=== PATIENT | male | born 1985 | race Caucasian/White ===

== ENCOUNTER → 2016-03-03 | Day surgery (SDC) | payer OTHER ==
[2016-02-25 08:45] VITALS: Ht 185.4 cm; Wt 100.9 kg
[~2016-03-03] VITALS: Ht 185.4 cm; Wt 100.9 kg
[~2016-03-03] MED LIST: ATV/2 SL; KPP/1000 PO; LIDOCAINE HCL 2% 2 ML VIAL (20MG/ML) ONE; MULT-506 PO; PROPOFOL IV EMULSION 10 MG/ML 20 ML VIAL IV ONE; SODIUM CHLORIDE 0.9% 500ML 500 ML IV ONE
--- NOTE | 2016-03-03 13:03 | Endo History and Physical ---
History & Physical Date of Service: Mar 03, 2016. Chief Complaint: ABDOMINAL PAIN, BLOOD IN STOOL Referring Physician: DR. LYLE History of Present Illness 30 yo CM who presents for Colonoscopy secondary to abdominal pain and blood in stool. Past Surgical History Hx Cardiac Surgery: No Hx Internal Defibrillator: No Hx Pacemaker: No Hx Abdominal Surgery: No Hx of Implantable Prosthesis: No Hx Post-Op Nausea and Vomiting: No Hx Cancer Surgery: No Hx Thoracic Surgery: No Hx Orthopedic: No Hx Urinary Tract Surgery: No Family History Colon CA Social History Smoking Status: Former Smoker Hx Substance Use: Yes (OCCASIONAL MARIJUANA) Hx Alcohol Use: Yes (OCCASIONAL) Allergies Coded Allergies: No Known Allergies (Verified , 03/03/16) Current Medications Reported Home Medications Medications Dose Route/Sig Max Daily Dose Days Date Category Ativan (Lorazepam) 2 Mg Tab 1 Tab SL UD PRN 02/25/16 Reported Multivitamin (Multivitamins) Tab 1 Tab PO QAM 02/25/16 Reported Keppra (Levetiracetam) 1,000 Mg Tab 1,000 Mg PO BID 02/25/16 Reported Vital Signs Weight (Kilograms): 100.91 Height (Feet): 6 Height (Inches): 1 Date Time Temp Pulse Resp B/P Pulse Ox O2 Delivery O2 Flow Rate FiO2 03/03/16 12:48 36.8 50 20 128/66 97 Room Air Physical Exam General Appearance: WD/WN, no apparent distress Respiratory/Chest: Auscultation: breath sounds normal Cardiovascular: Heart Auscultation: RRR Abdomen: Bowel Sounds: normal Inspection & Palpation: soft, non-distended, no tenderness, guarding & rebound Assessment and Plan Assessment: 30 yo CM who presents for Colonoscopy secondary to abdominal pain and blood in stool. Plan: Proceed with colonoscopy.
--- NOTE | 2016-03-03 13:30 | GI REPORT ---
Procedure Date: 03/03/2016 1:08 PM Procedure: Colonoscopy Indications: Generalized abdominal pain, Chronic diarrhea, Rectal bleeding Medicines: Monitored Anesthesia Care Complications: No immediate complications. Estimated Blood Loss: Estimated blood loss: none. Procedure: Pre-Anesthesia Assessment: - Prior to the procedure, a History and Physical was performed, and patient medications and allergies were reviewed. The patient's tolerance of previous anesthesia was also reviewed. The risks and benefits of the procedure and the sedation options and risks were discussed with the patient. All questions were answered, and informed consent was obtained. Prior Anticoagulants: The patient has taken no previous anticoagulant or antiplatelet agents. ASA Grade Assessment: II - A patient with mild systemic disease. After reviewing the risks and benefits, the patient was deemed in satisfactory condition to undergo the procedure. After I obtained informed consent, the scope was passed under direct vision. Throughout the procedure, the patient's blood pressure, pulse, and oxygen saturations were monitored continuously. The scope was introduced through the anus and advanced to the terminal ileum. The colonoscopy was performed without difficulty. The patient tolerated the procedure well. The quality of the bowel preparation was good. The terminal ileum, ileocecal valve, appendiceal orifice, and rectum were photographed. Findings: The colon (entire examined portion) appeared normal. Several random biopsies were obtained with cold forceps for histology in the entire colon. Fluid aspiration for cytology was performed. Impression: - The entire examined colon is normal. Fluid aspiration performed. - Several random biopsies were obtained in the entire colon. Recommendation: - Resume previous diet. - Continue present medications. - Repeat colonoscopy for surveillance based on pathology results. - Return to primary care physician as previously scheduled. Roc Lang DO 03/03/2016 1:29:49 PM This report has been signed electronically. Note Initiated On: 03/03/2016 1:08 PM
--- NOTE | 2016-03-03 13:33 | Discharge Instructions ---
Endoscopy Patient Instructions Date / Procedure(s) Performed Mar 03, 2016. Colonoscopy Allergy Information Coded Allergies: No Known Allergies (Verified , 03/03/16) Discharge Date / Findings Mar 03, 2016. Random colon biopsies Stool studies Medication Instructions OK to resume all medications today as prescribed Reported Home Medications Medications Dose Route/Sig Max Daily Dose Days Date Category Ativan (Lorazepam) 2 Mg Tab 1 Tab SL UD PRN 02/25/16 Reported Multivitamin (Multivitamins) Tab 1 Tab PO QAM 02/25/16 Reported Keppra (Levetiracetam) 1,000 Mg Tab 1,000 Mg PO BID 02/25/16 Reported Provider Instructions Activity Restrictions - No exercising or heavy lifting for 24 hours. - Do not drink alcohol the day of the procedure. - Do not drive a car or operate machinery until the day after the procedure. - Do not make any important decisions or sign important papers in 24 hours after the procedure. Following Day: - Return to full activity which may include returning to work/school. Diet Start your diet with liquids and light foods (jello, soup, juice, toast). Then eat your usual diet if not nauseated. Treatment For Common After Affects For mild abdominal pain, bloating, or excessive gas: - Rest - Eat lightly - Lie on right side Follow-Up Information Follow-up with DR. LYLE as scheduled Anesthesia Information What You Should Know You have had a procedure that required some medicine to reduce anxiety and discomfort. This treatment is called moderate sedation. After receiving the treatment, you may be sleepy, but you will be able to breathe on your own. The effects of the treatment may last for several hours. Follow these instructions along with Activity/Diet recommendations noted above: * Do NOT do anything where dizziness or clumsiness would be dangerous. * Rest quietly at home today, then you can be up and about tomorrow. * Have a responsible person stay with you the rest of today. * You may have had an I.V. today. If so, you may take the dressing off later today. Recommendations Call your doctor if: * Trouble breathing * Continuous vomiting for more than 24 hours * Temperature above 101 degrees * Severe abdominal pain or bloating * Pain not relieved by pain medicine ordered * There is increased drainage or redness from any incision * A large amount of rectal bleeding greater than 2-3 tablespoons. (If you had a polyp/s removed or have hemorrhoids, a small amount of blood - from the rectum is to be expected.) * You have any unanswered questions or concerns. IN THE EVENT OF A SERIOUS EMERGENCY, GO TO THE NEAREST EMERGENCY ROOM Your discharge instructions were prepared by provider Roc Lang. Patient Instructions Signature Page Baltazar Cronin Patient (or Guardian) Signature/Date: I have read and understand the instructions given to me by my caregivers. Caregiver/RN/Doctor Signature/Date: The above-named patient and/or guardian has received patient instructions on this date. + Original Patient Signature Page (only) stays with chart. Please make copy for patient.
--- NOTE | 2016-03-03 13:36 | Anesthesiology Progress Note ---
Anesthesia Post Op Note Date & Time Mar 03, 2016 at 13:35 Vital Signs Pain Intensity: 0 Vital Signs Past 12 Hours Date Time Temp Pulse Resp B/P Pulse Ox O2 Delivery O2 Flow Rate FiO2 03/03/16 13:26 45 16 101/54 96 Room Air 03/03/16 12:48 36.8 50 20 128/66 97 Room Air Notes Mental Status: alert / awake / arousable, participated in evaluation Pt Amnestic to Procedure: Yes Nausea / Vomiting: adequately controlled Pain: adequately controlled Airway Patency, RR, SpO2: stable & adequate BP & HR: stable & adequate Hydration State: stable & adequate Anesthetic Complications: no major complications apparent
[2016-03-03 13:55] VITALS: BP 118/72; PULSE 46; O2SAT 100
== END | disposition home or self-care (01) ==
LOC: C.GI 12:30
PROVIDERS: ATTEND Internal Medicine
DX: K52.9 Noninfective gastroenteritis and colitis, unspecified (principal); K92.1 Melena; R10.84 Generalized abdominal pain; Z80.0 Family history of malignant neoplasm of digestive organs; Z87.891 Personal history of nicotine dependence

== ENCOUNTER → 2016-04-25 | Outpatient (CLI) | payer OTHER ==
[~2016-04-25] MED LIST changes: -LIDOCAINE HCL 2% 2 ML VIAL (20MG/ML) ONE; -PROPOFOL IV EMULSION 10 MG/ML 20 ML VIAL IV ONE; -SODIUM CHLORIDE 0.9% 500ML 500 ML IV ONE
[2016-04-25 13:13] LABS: BASO % 0.6 %; BASO ABS # 0.04 K/uL (0-0.2); COMPLETE YES; EOS % 3.9 %; IG% 0.6 %; LYMPH % 28.1 %; LYMPH ABS # 1.97 K/uL (1.2-3.4); MEAN CELL VOLUME 88.4 fL (80-100); MEAN CORPUSCULAR HEMOGLOBIN 30.3 pg (25-34); MEAN CORPUSCULAR HGB CONC 34.3 g/dl (32-36); MEAN PLATELET VOLUME 10.6 fL (7.4-10.4); MONO % 9.6 %; NEUT % 57.2 %; PLATELET COUNT 268 K/uL (130-400); RED BLOOD COUNT 4.98 M/uL (4.7-6.1)
[2016-04-25 13:48] LABS: BLOOD UREA NITROGEN 11 mg/dl (7-18); CREATININE 0.88 mg/dl (0.60-1.40); GLUCOSE 77 mg/dl (70-99)
[2016-04-25 13:49] LABS: ALT/SGPT 33 U/L (12-78); AST/SGOT 15 U/L (15-37); BUN/CREATININE RATIO 12.4 (10-20); CARBON DIOXIDE 27 mmol/L (21-32); CHLORIDE 107 mmol/L (98-107); MAGNESIUM 2.2 mg/dl (1.8-2.4); POTASSIUM 4.4 mmol/L (3.5-5.1); SODIUM 141 mmol/L (136-145)
[2016-04-25 13:50] LABS: ALB/GLOB RATIO 1.3 (0.9-2); ALKALINE PHOSPHATASE 68 U/L (45-117)
== END | disposition home or self-care (01) ==
LOC: C.LAB1850 12:19
PROVIDERS: ATTEND Psychiatry & Neurology Neurology
DX: G40.909 Epilepsy, unspecified, not intractable, without status epilepticus (principal)

== ENCOUNTER → 2016-08-23 | Outpatient (CLI) | payer OTHER | END | disposition home or self-care (01) | LOC: C.LAB 17:50 | PROVIDERS: ATTEND Physician Assistant | DX: G40.909 Epilepsy, unspecified, not intractable, without status epilepticus (principal) ==

== ENCOUNTER → 2017-03-31 | Outpatient (CLI) | payer OTHER ==
[~2017-03-31] MED LIST changes: +OXCA1TAB29 PO
== END | disposition home or self-care (01) ==
LOC: C.LAB 11:49
PROVIDERS: ATTEND Obstetrics & Gynecology
DX: Z31.41 Encounter for fertility testing (principal)

== ENCOUNTER → 2017-03-31 | Outpatient (CLI) | payer OTHER | END | disposition home or self-care (01) | LOC: C.LAB1850 12:21 | PROVIDERS: ATTEND Physician Assistant | DX: G40.909 Epilepsy, unspecified, not intractable, without status epilepticus (principal) ==

== ENCOUNTER 2017-04-01 19:06 | Emergency (ER) | payer OTHER ==
[~2017-04-01] VITALS: Ht 185.4 cm; Wt 102.1 kg
[~2017-04-01 19:06] MED LIST changes: -OXCA1TAB29 PO
[2017-04-01 19:08] VITALS: TEMP 36.4; Ht 185.4 cm; Wt 102.1 kg
[2017-04-01] MEDS ORDERED: OXCA1TAB29 PO (19:48)
[2017-04-01] MEDS ORDERED: IBUPROFEN 200 MG TAB PO STA (20:01)
[2017-04-01] MEDS ORDERED: DIPHTHERIA/TETANUS/PERTUSSIS 0.5 ML SYR/VIAL IM. ONE (20:15)
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
--- NOTE | 2017-04-01 21:35 | DIAGNOSTIC IMAGING REPORT ---
R SHOULDER MIN 2 VIEWS ROUTINE CLINICAL HISTORY: R lateral shoulder pain COMPARISON: None FINDINGS: Alignment of the right shoulder is anatomic. There is no acute fracture. Joint spaces are preserved. IMPRESSION: No acute fracture or dislocation of the right shoulder. Electronically signed by: Don Valenzuela M.D. 04/01/2017 9:33 PM Dictated Date/Time: 04/01/2017 9:32 PM
--- NOTE | 2017-04-01 21:36 | DIAGNOSTIC IMAGING REPORT ---
R ELBOW MIN 3 VIEWS ROUTINE CLINICAL HISTORY: R medial elbow pain/bruising down to mid forearm COMPARISON: None FINDINGS: Alignment of the right elbow is anatomic. There is no acute fracture. No joint effusion is identified. IMPRESSION: No acute fracture or joint effusion of the right elbow. Electronically signed by: Don Valenzuela M.D. 04/01/2017 9:34 PM Dictated Date/Time: 04/01/2017 9:34 PM
[2017-04-01 22:17] VITALS: BP 153/71; PULSE 74; O2SAT 99
== END 2017-04-01 22:18 | disposition home or self-care (01) ==
LOC: C.EDB 19:07 → C.EDD 22:18
DX: S61.411A Laceration without foreign body of right hand, initial encounter (principal); S51.011A Laceration without foreign body of right elbow, initial encounter; S50.11XA Contusion of right forearm, initial encounter; V48.6XXA Car passenger injured in noncollision transport accident in traffic accident, initial encounter; M25.511 Pain in right shoulder; F12.90 Cannabis use, unspecified, uncomplicated; Z87.891 Personal history of nicotine dependence; Z23 Encounter for immunization